=== PATIENT | female | born 1980 | race Caucasian/White ===

== ENCOUNTER 2023-02-04 12:08 | Outpatient (CLI) | payer OTHER, SELFPAY ==
--- NOTE | 2023-02-04 12:23 | ECG_ITS ---
Measurements Intervals [place] Rate: 75 P: 63 NM: 162 QRS: 56 QRSD: 80 T: 49 QT: 385 QTc: 430 Interpretive Statements SINUS RHYTHM NORMAL ECG NO PREVIOUS ECG AVAILABLE FOR COMPARISON Electronically Signed On 02-04-2023 13:34:08 CDT by Clarence Hurt M.D.
== END 2023-02-04 12:09 | disposition home or self-care (01) ==
LOC: ANHSURGERY 12:16
PROVIDERS: Visit Provider Orthopaedic Surgery
DX: Z01.818 Encounter for other preprocedural examination (principal); I10 Essential (primary) hypertension
CPT/HCPCS: 93005

== ENCOUNTER 2023-02-10 00:59 | Day surgery (SDC) | payer OTHER, SELFPAY ==
[2023-01-27 13:38] VITALS: BMI 24.7
--- NOTE | 2023-01-27 13:47 | SUR.PREOP ---
Report to the Outpatient Waiting Room, entrance under the green pavilion located off [facility], at time 0830 on date 02/10/23. Planned Procedure Time: 1030. Time changes happen often and if your time is changed the preop area will call you the afternoon before. - You and your visitor will be asked to self-screen and do not enter if you have any COVID symptoms. - A mask is optional within the hospital at this time. Patients may have clear liquids (water, carbonated beverages, clear teas, apple juice) until 3 hours prior to surgery with a maximum of 20 ounces. - No food from midnight until time of surgery ( before 0730 am ) - Infants may have breast milk until 4 hours before surgery, formula 6 hours prior to surgery. - Children will be allowed to drink immediately following surgery. If applicable, please bring a bottle or sippy cup to assist with drinking. Juice, water, soda, and popsicles are readily available. For infants on formula, please bring formula the day of surgery. Pacifiers are allowed. Take the following medications with a SIP of water the morning of surgery: __N/A DO NOT STOP ANY OF YOUR OTHER PRESCRIPTION MEDICATIONS PRIOR TO SURGERY ?EXCEPT THE FOLLOWING Medications to discontinue per physician Date to take last dose Please no make-up, nail bengali, hairspray, perfume, deodorant, or body powder the day of surgery. No jewelry (including any body piercings) or valuables the day of surgery, leave them at home. Please take a shower or bath the night before, or the morning of, surgery with an antibacterial soap. Wear comfortable, loose fitting clothing. Children are encouraged to wear pajamas. - Jewelry must be removed prior to entering the operating room. Rings and piercings that are not removed may be cut off. - The hospital will not accept responsibility for valuables. - Please leave all valuables, including medications, at home the day of surgery. If you are going home after surgery, a licensed full service vending driver must drive you home. - NO public transportation without another adult if you receive anesthesia. - We recommend that an adult stay with you for 24 hours following discharge. - We also recommend that you do not drive, make important decision, drink alcoholic beverages, or take any drugs that were not prescribed by your health care provider for at least 24 hours after your discharge time. For Pediatric surgeries, we recommend two adults accompany the child home. Follow any additional instructions given to you from your surgeon. If you or anyone in your household have experienced Covid symptoms in the past week, please notify your surgeon or the nurse liaison at the phone number below for possible testing. Telephone instructions given to patient and asked if any additional questions and then verbalized understanding. Patient advised to call surgeon office or pre surgery nurse liaison [phone] if any additional questions.
[2023-02-10] VITALS (12 sets, daily range): BP systolic 110–145; BP diastolic 63–89; PULSE 70–108; RESP 14–17; TEMP 36.2–36.4; O2SAT 95–100; BMI 25.0
--- NOTE | 2023-02-10 07:29 | WPDHPUPDATE1 ---
History and Physical Update Update Date/Time: 02/10/23 07:29 History and Physical has been reviewed, including an updated exam of the patient. There are NO changes in the patient's condition. Risks, benefits, and alternatives have been discussed and questions answered. Patient agrees to proceed with procedure.
[2023-02-10] MEDS: ACETAMINOPHEN 500 MG TABLET 1000 MG PO (09:04)
[2023-02-10] MEDS: CELECOXIB 200 MG CAPSULE PO (09:04)
[2023-02-10] MEDS: LACTATED RINGERS 1,000 ML 30 ML IV CONT ×2 (09:08→13:56)
--- NOTE | 2023-02-10 10:00 | WPDANESEPPF ---
Anes - Initial Pre Proc Eval Procedure: Operation Date: 02/10/23 10:30 Proposed Procedures p Right Rotator Cuff Repair - Vasiliy Beck MD Date/Time: 02/10/23 10:00 Surgeon: Vasiliy Beck MD Pre Op Diagnosis: Rt Shoulder Rot Cuff Tear Patient Data Age: 42 Gender: F Height: 1.57 m Weight: 62 kg Last Vital Signs Temp 36.4 C L 02/10/23 09:32 Pulse 75 02/10/23 09:32 Resp 16 02/10/23 09:32 BP 111/71 02/10/23 09:32 Pulse Ox 100 02/10/23 09:32 Allergies Allergy/AdvReac Type Severity Reaction Status Date / Time Iodinated Contrast Media Allergy Unknown Hives Verified 02/10/23 08:49 lavender (Lavandula Allergy Hives Verified 02/10/23 08:49 angustifolia) Home Medications Medication Instructions Recorded Confirmed Type lisinopril 5 mg tablet 5 mg PO DAILY 01/07/23 02/10/23 History metoclopramide HCl 5 mg tablet 5 mg PO DAILY 02/05/23 02/10/23 History (Reglan) sucralfate 1 gram tablet 1 g PO BID 02/05/23 02/10/23 History Patient hx anesthesia problems: none Family hx anesthesia problems: none Results Review: All pre-operative results and documents have been reviewed as part of the pre-operative evaluation. [facility] Past Medical History Medical History (Updated 02/10/23 @ 10:00 by Javed Ty MD) GERD (gastroesophageal reflux disease) HTN (hypertension) Surgical History Surgical History (Updated 02/10/23 @ 10:01 by Javed Ty MD) History of cholecystectomy History of Krunal fundoplication History of strabismus surgery Social History Social History Smoking status: Never smoker Substance use type: does not use Living arrangements: with family Gender identity (if verbalized by the patient): Female Anes - Eval Final PreProcedure Day of Procedure 02/10/23 10:00 Patient weight: normal Heart: regular rate and rhythm Lungs: clear to auscultation Airway: Mallampati scale class II Neurological: alert and oriented Last oral intake: >/= 8 hours ASA classification: II Emergent: no Anesthetic plan: proceed Anesthesia type and monitoring: general ETT and standard monitoring Results Review: All pre-operative results and documents have been reviewed as part of the pre-operative evaluation. Informed Consent: The patient's anesthetic plan and its attendant risks and benefits were discussed with the patient/family/POA. Questions were solicited and answers provided to the satisfaction of the patient/family/POA.
--- NOTE | 2023-02-10 10:31 | WPDANESPNB ---
Anes - Peripheral Nerve Block Date/Time: 02/10/23 10:31 I have discussed with the patient/family/POA the placement of a peripheral nerve block for post-operative pain management, including associated risks, benefits, complications, and side effects. Alternative methods of post-operative analgesia were detailed. Questions were solicited and answers provided to the satisfaction of the patient/family/POA. Time-Out: A pre-procedural Time-Out was completed immediately before starting the procedure and confirmed: Patient Identification, Site, Procedure, Patient Position and the Availability of Requisite Equipment. Clinical Indications: Acute post-operative pain management requested by the operative surgeon. Nerve Block Insertion Note Anes-nerve block: interscalene right Patient position: supine Needle: 22 gauge, stimulating, insulated echogenic needle. Needle length: 50 mm Technique: ultrasound Injectate: bupivacaine 0.5% with epi 5 mcg/ml (30cc no epi) and dexamethasone (mg) (8 mg) Observations: tolerated well Complications: none Procedure start time:: 1025 Procedure end time:: 1030
[2023-02-10] MEDS: ceFAZolin 2 GM/D5W 50 ML 2 GM/50 ML BAG IVPB (10:41)
--- NOTE | 2023-02-10 13:59 | P.OP_ITS ---
Procedure Note - Detailed Date of Procedure 02/10/23 Pre-op Diagnosis Rt Shoulder Rotator Cuff Tear Post-op Diagnosis Same Procedure Performed REPAIR RIGHT ROTATOR CUFF Surgeon Vasiliy Beck MD Anesthesia General Description of Procedure THE PATIENT WAS TAKEN TO THE OPERATING ROOM AND THEN INTUBATED AND PLACED IN THE BEACH CHAIR POSITION. THE RIGHT UPPER EXTREMITY WAS PREPPED AND DRAPED IN THE NORMAL STERILE FASHION. AN INCISION WAS MADE IN BETWEEN THE [place]-LATERAL ACROMION AND THE AC JOINT. THE FASCIA WAS IDENTIFIED. NEXT A MINI OPEN INCISION WAS MADE THROUGH THE DELTOID MUSCLE EXPOSING THE SUBACROMIAL SPACE. A LIMITED ACROMIOPLASTY WAS PREFORMED. THERE WAS A LARGE AMOUNT OF BURSAE TISSUE AND AD HESIONS TO THE UNDERSURFACE OF THE DELTOID AND ROTATOR CUFF SURFACE. THE ROTATOR CUFF WAS IDENTIFIED. THERE WAS A FULL THICKNESS TEAR. IT MEASURED APPROXIMATELY 3 CM X 2 CM. BURSECTOMY WAS PREFORMED UNTIL THE CUFF TENDON EDGES WERE IDENTIFIED AND FREED UP OF SCAR AND BURSAL TISSUE.THE GREATER TUBEROSITY WAS DEBRIDED TO BLEEDING BONE. 3 ARTHREX 4.75 SUTURE ANCHORS WERE PLACED IN TO GOOD BONE AND HAD VERY GOOD BITES. MATTRESS TYPE REPAIRS WERE DONE TO THE ROTATOR CUFF AND THERE WAS GOOD APPROXIMATION TO THE GREATER TUBEROSITY. THE REPAIR WAS EXCELLENT. THERE WAS NO IMPINGEMENT ON THE REPAIR FROM THE ACROMION WITH RANGE OF MOTION. THE WOUND WAS IRRIGATED WITH COPIOUS AMOUNTS OF ANTIBIOTIC SOLUTION. THE DELTOID MUSCLE WAS REPAIRED WITH #2 FIBER WIRE AND 0 VICRYL SUTURE. THE SUBCUTANEOUS LAYER WAS APPROXIMATED WITH 2-0 VICRYL. THE SKIN WAS APPROXIMATED WITH 3-0 QUIL AND DERMABOND. STERILE DRESSING WAS APPLIED. PATIENT WAS EXTUBATED. Estimated Blood Loss 20 Complications No immediate complications Condition Stable Disposition PACU
[2023-02-10] MEDS: ONDANSETRON INJ 4 MG/2 ML VIAL IV PUSH (14:12)
[2023-02-10] MEDS: diphenhydrAMINE HCl INJ 50 MG/ML VIAL 25 MG IV PUSH (14:44)
[2023-02-10] MEDS: SCOPOLAMINE 1.5 MG PATCH TRANSDERM (14:44)
== END 2023-02-10 16:55 | disposition home or self-care (01) ==
PROVIDERS: Visit Provider Orthopaedic Surgery
PROC: (CPT 23420; principal; 2023-02-10 10:30)
DX: M75.101 Unspecified rotator cuff tear or rupture of right shoulder, not specified as traumatic (principal); G89.18 Other acute postprocedural pain; I10 Essential (primary) hypertension; K21.9 Gastro-esophageal reflux disease without esophagitis
CPT/HCPCS: 23412; 64415; A9270; C1713; J0690; J1100; J1200; J2250; J2371; J2405; J2704; J3010; J7120

== ENCOUNTER 2023-05-28 12:30 | Outpatient (RCR) | payer OTHER, SELFPAY ==
[2023-03-03 10:22] VITALS: BP_SYST 40
--- NOTE | 2023-03-03 16:57 | PTOPEVAL1 ---
Assessment and note entered by Linda Pham, PT Evaluation Information Assessment Status Evaluation Diagnosis Right rotator cuff repair Therapy condition right shoulder pain, encounter for other post surgical procedures, weakness, abnormal posture Onset 02/10/23 Subjective Information right hand dominant Reports Overdid it on Wednesday was trying to clean and using LUE made her sore. Has pretty much been off per pain medication but was told to take the Percocet for therapy Hasn't iced in about a week, but before this was really good about icing. Reported Pain Level Pain Score 2: Self Report Assessment PT Clinical Summary Pt presents s/p RUE rotator cuff repair 02/10/2023 . Pt demo's significantly decreased passive ROM of RUE shoulder and elbow with guarding noted throughout testing. Pt reports continued high levels of discomfort and abnormal postures. Pt will benefit from physical therapy to address deficits, and progress through surgical protocol to return to PLOF without pain. Plan of Care Interventions Electrical Stimulation,Gait Training,Manual Therapy,Neuro Re-education,Therapeutic Activities, Therapeutic Exercise,Self-Care/Home Management Other Interventions Taping PT Services Indicated Yes Treatment Frequency and 2x weekly x 8 weeks Duration These treatments will address the objective and functional deficits as defined above. The patient will be advanced safely and appropriately in order for the patient to progress towards his/her prior level of function. Additional exercises will be introduced and as well as a comprehensive home exercise program upon discharge, if needed, ?to ensure carryover of functional gains achieved in the clinic. This treatment plan has been reviewed and agreement upon by the patient.
--- NOTE | 2023-03-03 16:58 | OPREHPOC ---
Outpatient Therapy Plan of Care This is a Multidisciplinary Plan of Care that may contain components documented by all disciplines (PT, OT, and ST.) PT Goal 1 Goal Pt will be independent in HEP Pt will verbalize understanding of diagnosis and prognosis Target Visit 8 PT Problem 2 PT Problem #2 Pain PT Goal 1 Goal Pt will report greatest pain level at 3/10 or less to improve ADLs Target Visit 16 PT Goal 2 Goal Pt will report resolution of pain to return to PLOF Target Visit 30 PT Problem 3 PT Problem #3 Impaired Range of Motion PT Goal 1 Goal Pt will demo PROM RUE flexion of 120 Target Visit 12 PT Goal 2 Goal Pt will show AROM within 75% or unaffected UE Target Visit 30 PT Problem 4 PT Problem #4 Impaired Strength PT Goal 1 Goal Pt will demo 3/5 RUE strength (when protocol allows) Target Visit 12 PT Goal 2 Goal Pt will demo strength within 1/2 muscle grade of LUE (as protocol allows) to return to her normal activities Target Visit 30
[2023-04-01 11:00] VITALS: BP_SYST 60
--- NOTE | 2023-04-01 11:53 | PCPTNOTE ---
Admitting Provider: Attending Provider: Vasiliy Beck MD Patient:Ignacia Corona Date of :1980 Please allow Ignacia to wear her sling while on the plane to prevent injury after surgery. Also please assist her as needed with her carry-on bags as she is not allowed to lift yet due to surgical healing and protocol. Thank you for your assistance Dr. Linda Monae; Physical Therapist. Provider signature Date
--- NOTE | 2023-04-02 10:56 | PTOPPROG ---
Assessment and note entered by Linda Pham, PT Evaluation Information Assessment Status Progress Diagnosis Right rotator cuff repair, pain in right shoulder abnormal posture, weakness Onset 02/10/23 Subjective Information Pt feels like she is doing ok. Feels that she is able to do more stuff like use her right hand to brush teeth without moving arm, is much more comfortable to sleep. Day to day is easier. Weaning out of sling, has not worn her sling in multiple days. Is still planning on wearing her sling while she travels. Self-percieved improvement: 65% Assessment PT Clinical Summary Pt has been attending therapy consistently for right shoulder s/p rotator cuff repair. She is limited in her passive and active ROM due to pain, difficulty with guarding, and decreased humeral glide. She is improving in her discomfort and functional use in a modified manner with her RUE. Pt will benefit from continued therapy to continue progressing through rotator cuff repair protocol and return to independent full use of her RUE without pain. Plan of Care Interventions Electrical Stimulation,Gait Training,Manual Therapy,Neuro Re-education,Therapeutic Activities, Therapeutic Exercise,Self-Care/Home Management Other Interventions Taping PT Services Indicated Yes Treatment Frequency and Cont POC 2x weekly x 4 weeks Duration These treatments will address the objective and functional deficits as defined above. The patient will be advanced safely and appropriately in order for the patient to progress towards his/her prior level of function. Additional exercises will be introduced and as well as a comprehensive home exercise program upon discharge, if needed, ?to ensure carryover of functional gains achieved in the clinic. This treatment plan has been reviewed and agreement upon by the patient.
[2023-04-27 08:35] VITALS: BP_SYST 90
--- NOTE | 2023-04-27 09:28 | PTOPPROG ---
Assessment and note entered by Linda Pham, PT Assessment Status Progress Diagnosis Right rotator cuff repair, pain in right shoulder abnormal posture, weakness Subjective Information Reports is so comfortable with activities now she will try to reach is will have pain a sharp pain with overreaching. Has not worn sling since traveling. Long days arm will get tired. No problem brushing teeth, hair can get into a low ponytail but not a normal ponytail. But is trying to do this, but doesn't want to push it and make it angry. OTC medication Tylenol pm most nights and sometimes is the only thing will take all day. Will take Motrin as needed 1-2x weekly. Never has to take more then 1x Motrin and 1x Tylenol pm. Self-percieved improvement 75-80%. Feels like is doing most things but can't reach some things and not lifting heavy yet. Assessment PT Clinical Summary Demo's compensatory scapular motion with attempted active ROM, but demo's good strength within available range. Pt cont to be most limited due to range restrictions. Pt cont to demo decreased active and passive ROM RUE secondary to soft tissue restrictions and pain but continues to show improvement through therapy sessions. Thus will benefit from therapy to continue improvement and return to PLOF. Plan of Care Interventions Electrical Stimulation,Hot Pack/Cold Pack,Manual Therapy,Neuro Re-education,Patient/Caregiver Educati,Therapeutic Activities,Therapeutic Exercise,Self-Care/Home Management Other Interventions Taping PT Services Indicated Yes Treatment Frequency and 1-2x weekly x 8 weeks Duration These treatments will address the objective and functional deficits as defined above. The patient will be advanced safely and appropriately in order for the patient to progress towards his/her prior level of function. Additional exercises will be introduced and as well as a comprehensive home exercise program upon discharge, if needed, ?to ensure carryover of functional gains achieved in the clinic. This treatment plan has been reviewed and agreement upon by the patient.
== END 2023-05-28 16:30 | disposition still patient (30) ==
LOC: ANHHIPT 12:30
PROVIDERS: Visit Provider Orthopaedic Surgery
DX: Z98.890 Other specified postprocedural states (principal)
CPT/HCPCS: 29581; 97014; 97110; 97112; 97140; 97161; 97750; G0283

== ENCOUNTER 2023-07-13 11:00 | Outpatient (RCR) | payer OTHER, SELFPAY ==
[2023-05-28 16:31] VITALS: BP_SYST 90
[2023-06-01 10:08] VITALS: BP_SYST 90
[2023-06-15 11:27] VITALS: BP_SYST 105
--- NOTE | 2023-06-16 16:14 | PTOPPROG ---
Assessment and note entered by Linda Pham, PT Assessment Status Progress Report Diagnosis Right rotator cuff repair, pain in right shoulder, weakness, abnormal posture Onset 02/10/23 Subjective Information Noticed went to play cards and was able but got tired quickly and recovery was slow. Cont to have discomfort with laying on right side. Still taking the Motrin 1-2x weekly, went 3 nights without Tylenol but had a less restful sleep Still not lifting heavy items regularly (laundry basket, dog care) Still pulls reaching overhead, has modified placement of her items and requires increased time to get items from overhead Assessment PT Clinical Summary Demo's compensatory scapular motion with attempted active ROM, but demo's good strength within available range. Pt cont to be most limited due to range restrictions. Pt cont to demo decreased active and passive ROM RUE secondary to soft tissue restrictions and pain but continues to show improvement through therapy sessions. Thus will benefit from therapy to continue improvement and return to PLOF. Plan of Care Interventions Therapeutic Exercise,Patient/Caregiver Educati, Manual Therapy,Neuro Re-education,Therapeutic Activities,Hot Pack/Cold Pack,Electrical Stimulation,Self-Care/Home Management Other Interventions Taping PT Services Indicated Yes Treatment Frequency and 1-2x weekly x 8 weeks Duration These treatments will address the objective and functional deficits as defined above. The patient will be advanced safely and appropriately in order for the patient to progress towards his/her prior level of function. Additional exercises will be introduced and as well as a comprehensive home exercise program upon discharge, if needed, ?to ensure carryover of functional gains achieved in the clinic. This treatment plan has been reviewed and agreement upon by the patient.
--- NOTE | 2023-06-16 16:18 | OPREHPOC ---
Outpatient Therapy Plan of Care This is a Multidisciplinary Plan of Care that may contain components documented by all disciplines (PT, OT, and ST.) PT Goal 1 Goal Pt will be independent in HEP Pt will verbalize understanding of diagnosis and prognosis Target Visit 8 Progress Met PT Problem 2 PT Problem #2 Pain PT Goal 1 Goal Pt will report greatest pain level at 3/10 or less to improve ADLs Target Visit 16 Progress Partially Met PT Goal 2 Goal Pt will report resolution of pain to return to PLOF Target Visit 40 PT Problem 3 PT Problem #3 Impaired Range of Motion PT Goal 1 Goal Pt will demo PROM RUE flexion of 120 Target Visit 12 Progress Met Comment Progressed to 110 flexion PT Goal 2 Goal Pt will show AROM within 75% or unaffected UE Target Visit 40 Progress Partially Met PT Problem 4 PT Problem #4 Impaired Strength PT Goal 1 Goal Pt will demo 3/5 RUE strength (when protocol allows) Target Visit 12 Progress Met PT Goal 2 Goal Pt will demo strength within 1/2 muscle grade of LUE (as protocol allows) to return to her normal activities Target Visit 40 PT Problem 5 PT Problem #5 Impaired Range of Motion PT Goal 1 Goal Pt will demo flexion AROM 150 degrees for functional use of RUE Pt will demo abduction AROM of 120 degrees for improved function and to demo decompression of glenohumeral joint. Target Visit 40
--- NOTE | 2023-06-17 15:09 | PTOPPROG ---
Assessment and note entered by Linda Pham, PT Assessment Status Progress Report Diagnosis Right rotator cuff repair, pain in right shoulder weakness, abnormal posture Onset 02/10/23 Subjective Information Noticed went to play cards and was able but got tired quickly and recovery was slow. Cont to have discomfort with laying on right side. Still taking the Motrin 1-2x weekly, went 3 nights without Tylenol but had a less restful sleep Still not lifting heavy items regularly (laundry basket, dog care) Still pulls reaching overhead, has modified placement of her items and requires increased time to get items from overhead Assessment PT Clinical Summary Pt rajat's significant improvement in her active and passive ROM with less scapular motion as compensation for ROM deficit. She also shows improved strength in mid-range testing. However she does continue to show significant ROM restrictions effecting her ability to reach for items causing her to have to modify her kitchen and activities due to ROM and discomfort. Pt also shows increased strength but also continues to have difficulty with high level activities such as carrying heavy items and activities with her dog. Pt requires continued therapy to continue improvement as patient has not plateaued and has not returned to PLOF. Plan of Care Interventions Therapeutic Exercise,Patient/Caregiver Educati, Manual Therapy,Neuro Re-education,Therapeutic Activities,Hot Pack/Cold Pack,Electrical Stimulation,Self-Care/Home Management Other Interventions Taping PT Services Indicated Yes Treatment Frequency and 1-2x weekly x 12 visits Duration These treatments will address the objective and functional deficits as defined above. The patient will be advanced safely and appropriately in order for the patient to progress towards his/her prior level of function. Additional exercises will be introduced and as well as a comprehensive home exercise program upon discharge, if needed, ?to ensure carryover of functional gains achieved in the clinic. This treatment plan has been reviewed and agreement upon by the patient.
[2023-07-13 10:59] VITALS: BP_SYST 115
--- NOTE | 2023-07-15 11:37 | PTOPDC ---
Assessment and note entered by Linda Pham, PT Evaluation Information Assessment Status Discharge Diagnosis Right rotator cuff repair Onset 02/10/23 Subjective Information Pt reports has been a weird couple of days . maybe over did it , was dealing cards last night and all of a sudden RUE was shaky and tingly. Also notes felt a pop and was sore. Last night took tylenol during her card game so didn't take any tylenol pm. Prior to this wasn't having to take tylenol for bed. Has been laying on her right side at night and this will make it sore. is carrying laundry regularly and was able to carry laundry, glass of water, around stairs and child gait without dropping anything. Is also able to do her hair now and reach the areas of her head Items have been put back where they belong with her kitchen activities and is doing alright with this. States rarely when reaching will feel like a snag and she starts the activity over and this resolves. Self-perceived improvement:80% Notes is more confident now using her arm but not like pre-injury. Pt reports noted pain last night but is going to decrease her intense activities today like moving boxes and buckets. Pt reports if plays on her tablet too long will get tingling in lower arm. Assessment PT Clinical Summary Pt has attended therapy consistently for her right rotator cuff repair. Pt reports feeling 80% improved overall, is able to do her hair, has been able to return her kitchen items to the higher shelves, can carry laundry down stairs without issue, and has much less discomfort only requiring Tylenol occasionally. Pt has made minimal progress between last reevaluation and today regarding range of motion, is somewhat guarded today as well. Strength remains similar levels to prior reevaluation however appears grossly equal in most planes. Pt cont to demo significant scapular motion to compensate for lack of glenohumeral motion, has impingement-type end- feels and symptoms. Has been educated and patient
== END 2023-07-15 16:12 | disposition home or self-care (01) ==
LOC: ANHHIPT 11:00
PROVIDERS: Visit Provider Orthopaedic Surgery
DX: Z48.89 Encounter for other specified surgical aftercare (principal); Z98.890 Other specified postprocedural states
CPT/HCPCS: 97014; 97110; 97112; 97140; 97750; G0283